=== PATIENT | male | born 2000 | race Hispanic/Latino ===

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

== ENCOUNTER 2020-05-28 00:47 | Emergency (ER) | payer BC, MEDICAID ==
[~2020-05-28] VITALS: Ht 157.5 cm; Wt 68.2 kg
[~2020-05-28 00:47] MED LIST: TEST200I14 IM
[2020-05-28] MEDS ORDERED: APAP325T4 PO (00:53)
[2020-05-28] MEDS ORDERED: TRUVTAB PO (00:53)
[2020-05-28 02:35] LABS: BASO # 0.1 10^3/uL (0.0-0.2); BASO % 0.7 % (0.0-1.0); EOS # 0.2 10^3/uL (0.0-0.5); EOS % 3.1 % (0.0-3.0); HEMATOCRIT 43.4 % (42.0-52.0); LYMPH # 2.2 10^3/uL (1.5-5.0); MEAN CORPUSCULAR HEMOGLOBIN 28.9 pg (27.0-33.0); MEAN CORPUSCULAR HGB CONC 32.3 g/dl (32.0-36.5); MEAN CORPUSCULAR VOLUME 89.7 fl (80.0-96.0); MONO # 0.8 10^3/uL (0.0-0.8); MONO % 11.5 % (0.0-5.0); NEUTROPHILS # 3.8 10^3/uL (1.5-8.5); NEUTROPHILS % 53.4 % (36.0-66.0); PLATELET COUNT, AUTOMATED 283 10^3/uL (150-450); RED BLOOD COUNT 4.84 10^6/uL (4.30-6.10); WHITE BLOOD COUNT 7.1 10^3/uL (4.0-10.0)
[2020-05-28 02:52] LABS: ERYTHROCYTE SEDIMENTATION RATE 2 mm/hr (0-15)
[2020-05-28 03:19] LABS: BLOOD UREA NITROGEN 9 MG/DL (7-18); CALCIUM LEVEL 9.5 MG/DL (8.5-10.1); CARBON DIOXIDE LEVEL 29 MEQ/L (21-32); CHLORIDE LEVEL 107 MEQ/L (98-107); CREATININE FOR GFR 1.01 MG/DL (0.70-1.30); GLUCOSE, FASTING 83 MG/DL (70-100); POTASSIUM SERUM 4.1 MEQ/L (3.5-5.1); SODIUM LEVEL 140 MEQ/L (136-145)
[2020-05-28 04:03] VITALS: BP 117/77
== END 2020-05-28 04:06 | disposition home or self-care (01) ==
LOC: M ED 00:47
DX: L76.34 Postprocedural seroma of skin and subcutaneous tissue following other procedure (principal)

== ENCOUNTER → 2020-08-15 | Outpatient (CLI) | payer MEDICAID ==
[~2020-08-15] MED LIST changes: +APAP325T4 PO; +TRUVTAB PO
== END ==
LOC: M LABSMTC 11:15
PROVIDERS: ATTEND Family Medicine
DX: Z20.828 Contact with and (suspected) exposure to other viral communicable diseases (principal)

== ENCOUNTER 2020-10-01 21:13 | Emergency (ER) | payer MEDICAID ==
[~2020-10-01] VITALS: Ht 160 cm; Wt 76.5 kg
--- OUTSIDE RECORDS SUMMARY | 2020-10-01 21:21 | CCD ---
Author Author [facility] Organization [facility] Address Unknown Phone Unavailable Care Team Providers Care Store Team Member Name Role Phone PETROFF, JIMMY PA Unavailable Unavailable PETROFF, JIMMY PA Unavailable Unavailable PETROFF, JIMMY PA Unavailable Unavailable PETROFF, JIMMY PA Unavailable Unavailable PETROFF, JIMMY PA Unavailable Unavailable PETROFF, JIMMY PA Unavailable Unavailable PETROFF, JIMMY PA Unavailable Unavailable PETROFF, JIMMY PA Unavailable Unavailable Re-disclosure Warning The records that you are about to access may contain information from federally-assisted alcohol or drug abuse programs. If such information is present, then the following federally mandated warning applies: This information has been disclosed to you from records protected by federal confidentiality rules (42 CFR part 2). The federal rules prohibit you from making any further disclosure of this information unless further disclosure is expressly permitted by the written consent of the person to whom it pertains or as otherwise permitted by 42 CFR part 2. A general authorization for the release of medical or other information is NOT sufficient for this purpose. The Federal rules restrict any use of the information to criminally investigate or prosecute any alcohol or drug abuse patient.The records that you are about to access may contain highly sensitive health information, the redisclosure of which is protected by Article 27-F of the [facility] Public Health law. If you continue you may have access to information: Regarding HIV / AIDS; Provided by facilities licensed or operated by the [facility] Office of Mental Health; or Provided by the [facility] Office for People With Developmental Disabilities. If such information is present, then the following [facility] mandated warning applies: This information has been disclosed to you from confidential records which are protected by state law. State law prohibits you from making any further disclosure of this information without the specific written consent of the person to whom it pertains, or as otherwise permitted by law. Any unauthorized further disclosure in violation of state law may result in a fine or correction sentence or both. A general authorization for the release of medical or other information is NOT sufficient authorization for further disc losure. Encounters Encounter Providers Location Date Indications Data Source(s ) Outpatient [facility] 07/02/2020 12:02:10 AM EDT [facility] Emergency Attender: JIMMY GALVEZ 2019 09:50:00 AM EDT - 05/26/2020 10:13:00 AM EDT [facility] Patient discharged. Outpatient [facility] 02/21/2020 08:01:13 PM EDT [facility] Outpatient [facility] 02/12/2020 12:02:58 AM EDT [facility] Insurance Providers Payer name Policy type / Coverage type Policy ID Covered republican ID Covered republican's relationship to medley Policy Medley Plan Information EMEDNY [id number] SP [id number] [employer] [facility] [place] [facility] 306/806 [id number] SP [id number] Self Pay P UNAVAILABLE S UNAVAILA BLE BCBS HMO BLUE [id number] S [id number] MEDICAID [id number] BCBS ANTHEM BC [id number] S JL [id number] BCBS O BLUE [id number] S [id number] [place] 306/806 [id number] SP [id number] [employer] [id number] SP [id number] MEDICAID [id number] SP [id number] Problems, Conditions, and Diagnoses Code Display Name Description Problem Type Effective Dates Data Source(s) Z90.13 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 ACQUIRED ABSENCE OF BILATERAL BREASTS AND NIPPLES Diagnosis 05/26/2020 09:50:00 AM EDT [facility] 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 Diagnosis 05/26/2020 09:50:00 AM [facility] l L76.82 Other postprocedural complications of sk in and subcutaneous tissue OTH POSTPROCEDURAL COMPLICATIONS OF SKIN, SUBCU Diagnosis 05/26/2020 09:50:00 AM [facility] R07.9 Chest pain, unspecified CHEST PAIN, UNSPECIFIED Diagno sis 05/26/2020 09:50:00 AM [facility] Results ID Date Data Source [id number] 08/15/2020 11:15:00 AM EST [facility] Name Value Range Interpretation Code Description Data Fabiana rce(s) Supporting Document(s) SARS coronavirus 2 RNA [facility] This lab was ordered by [facility] and reported by [facility]. ID Date Data Source [id number] 05/26/2020 12:40:00 PM [facility] Patient: SUZANNE ROBB atkevin Report - Physicians/Mid Levels [facility].VisitID: [id number] [place] [address] [phone], MRegistration Date/Time: 05/26/2020 09:41 Weight:67.5 kg (S). Height/Length:63 inches (S). BMI:26.4. Growth Chart Percentile: Weight:40.4%. Height/Length:1% FAMILY HISTORYPaternal grandmother: Cancer. Mother: Diabetes Mellitus, Heart Disease. INSTRUCTIONSYour Current Medications: Your current home medications have been reviewed. CONTINUE TAKING THE FOLLOWING MEDICATIONS:Truvada Oral : unknown dose daily, Last: 1 week ago. (Electronically signed by Jimmy Velez, PNathan 05/26/2020 12:12) Name Value Range Interpretation Code Description Data Fabiana rce(s) Supporting Document(s) ID Date Data Source [id number] 02/28/2020 05:27:00 PM EDT [facility] Name Value Range Interpretation Code Description Data Fabiana rce(s) Supporting Document(s) SARS-COV-2 RNA RESP QL TITI+PROBE [facility] This lab was ordered by [facility] and reported by [facility]. Procedure
[2020-10-01] MEDS ORDERED: WELLBUTRIN (21:23)
[2020-10-01] MEDS ORDERED: DOXY100C37 PO (23:25)
[2020-10-01] MEDS ORDERED: DOXYCYCLINE HYCLATE 100MG TABLET PO ONE (23:30)
--- OUTSIDE RECORDS SUMMARY | 2020-10-01 23:37 | CCD ---
Author Author [facility] Organization [facility] Address Unknown Phone Unavailable Care Team Providers [employer] Name Role Phone PETROFF, JIMMY PA Unavailable [...] is protected by Article 27-F of the [facility] Public Health law. If you continue you may have access to information: Regarding HIV / AIDS; Provided by facilities licensed or operated by the [facility] Office of Mental Health; or Provided by the [facility] Office for People With Developmental Disabilities. If such information is present, then the following [facility] mandated warning applies: This information has [...] law may result in a fine or snf sentence or both. A general authorization for the release of medical or other information is NOT sufficient authorization for further disc losure. Encounters Encounter Providers Location Date Indications Data Source(s ) Outpatient [facility] 07/02/2020 12:02:10 AM EDT [facility] Emergency Attender: JIMMY GALVEZ 2019 09:50:00 AM EDT - 05/26/2020 10:13:00 AM EDT [facility] Patient discharged. Outpatient [facility] 02/21/2020 08:01:13 PM EDT [facility] Outpatient [facility] 02/12/2020 12:02:58 AM EDT [facility] Insurance Providers Payer name Policy type / Coverage type Policy ID Covered alliance party ID Covered alliance party's relationship to medley Policy Med[employer] Plan Information EMEDNY [id number] SP [id number] [employer] [facility] [place] [facility] 306/806 [id number] SP [id number] Self Pay P UNAVAILABLE S UNAVAILA BLE BCBS O BLUE [id number] S [id number] [id number] MEDICAID [id number] S [id number] BCBS ANTHEM BC [id number] S JL [id number] BCBS O BLUE [id number] S JLJ [id number] [employer] [place] 306/806 [id number] SP [id number] [employer] [id number] SP [id number] MEDICAID [id number] SP [id number] Problems, Conditions, and Diagnoses Code Display Name Description Problem Type Effective Dates Data Source(s) Z90.13 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 ACQUIRED ABSENCE OF BILATERAL BREASTS AND NIPPLES Diagnosis 05/26/2020 09:50:00 AM EDT [facility] Z79.899 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 Diagnosis 05/26/2020 09:50:00 AM [facility] l L76.82 Other postprocedural complications of sk in and subcutaneous tissue OTH POSTPROCEDURAL COMPLICATIONS OF SKIN, SUBCU Diagnosis 05/26/2020 09:50:00 AM [facility] R07.9 Chest pain, unspecified CHEST PAIN, UNSPECIFIED Diagno sis 05/26/2020 09:50:00 AM [facility] Results ID Date Data Source [id number] 08/15/2020 11:15:00 AM EST [facility] Name Value Range Interpretation Code Description Data Fabiana rce(s) Supporting Document(s) SARS coronavirus 2 RNA [facility] This lab was ordered by [facility] and reported by [facility]. ID Date Data Source [id number] 05/26/2020 12:40:00 PM [facility] Patient: SUZANNE ROBB ation Report - Physicians/Mid Levels [facility].VisitID: [id number] [place] [address] [phone], MRegistration Date/Time: 05/26/2020 09:41 Weight:67.5 kg (S). [...] rce(s) Supporting Document(s) ID Date Data Source [id number] 02/28/2020 05:27:00 PM EDT [facility] Name Value Range Interpretation Code Description Data Fabiana rce(s) Supporting Document(s) SARS-COV-2 RNA RESP QL TITI+PROBE [facility] This lab [facility] and reported by [facility]. Procedure
[2020-10-01 23:39] VITALS: BP 130/77
== END 2020-10-01 23:40 | disposition home or self-care (01) ==
LOC: M ED 21:13
DX: L02.411 Cutaneous abscess of right axilla (principal); F17.200 Nicotine dependence, unspecified, uncomplicated; F64.0 Transsexualism; Z79.890 Hormone replacement therapy; Z90.13 Acquired absence of bilateral breasts and nipples

== ENCOUNTER 2020-12-10 22:00 | Emergency (ER) | payer BC, MEDICAID ==
[~2020-12-10] VITALS: Ht 160 cm; Wt 79.1 kg
[~2020-12-10 22:00] MED LIST changes: +DOXY100C37 PO; +WELLBUTRIN
[2020-12-11] MEDS ORDERED: ONDANSETRON 4MG/2ML VIAL IV ONE
[2020-12-11] MEDS ORDERED: GI COCKTAIL 50ML BTL(HYOSCYAMINE/MAALOX/LIDOCAINE VISCOUS)(1:3:1) PO ONE
[2020-12-11] MEDS ORDERED: SUCRALFATE 1 GM TAB PO ONE
[2020-12-11] MEDS ORDERED: NS 1,000 ML IV ONE
[2020-12-11] MEDS ORDERED: PANTOPRAZOLE 40MG VIAL (C9113 PER 1) IV ONE
[2020-12-11 00:40] LABS: BASO % 0.1 % (0.0-1.0); EOS # 0.1 10^3/uL (0.0-0.5); EOS % 0.5 % (0.0-3.0); HEMATOCRIT 47.9 % (42.0-52.0); LYMPH # 0.9 10^3/uL (1.5-5.0); LYMPH % 5.8 % (24.0-44.0); MEAN CORPUSCULAR HEMOGLOBIN 29.6 pg (27.0-33.0); MEAN CORPUSCULAR HGB CONC 33.4 g/dl (32.0-36.5); MEAN CORPUSCULAR VOLUME 88.5 fl (80.0-96.0); MONO # 1.2 10^3/uL (0.0-0.8); MONO % 7.5 % (2.0-8.0); NEUTROPHILS # 13.2 10^3/uL (1.5-8.5); NEUTROPHILS % 85.7 % (36.0-66.0); PLATELET COUNT, AUTOMATED 253 10^3/uL (150-450); RED BLOOD COUNT 5.41 10^6/uL (4.30-6.10); WHITE BLOOD COUNT 15.4 10^3/uL (4.0-10.0)
[2020-12-11 01:13] LABS: ALBUMIN 4.3 GM/DL (3.2-5.2); BILIRUBIN,DIRECT 0.1 MG/DL (0.0-0.2); BILIRUBIN,TOTAL 0.4 MG/DL (0.2-1.0); TOTAL PROTEIN 8.4 GM/DL (6.4-8.2)
--- NOTE | 2020-12-11 01:41 | REPVR ---
PROCEDURE INFORMATION: Exam: XR Complete Acute Abdomen Series Exam date and time: 12/10/2020 1:27 AM Age: 20 years old Clinical indication: Abdominal pain; Acute; Additional info: Epigastric pain, nv, R/O free air, obstruction TECHNIQUE: Imaging protocol: XR complete acute abdomen series, including 2 or more views of the abdomen and a single view chest. COMPARISON: No relevant prior studies available. FINDINGS: Lungs: Normal. No consolidation. Pleural spaces: Normal. No pleural effusions. No pneumothorax. Heart/Mediastinum: Normal. No cardiomegaly. Gastrointestinal tract: Normal. No bowel dilation. Intraperitoneal space: Normal. No free air. Bones/joints: Normal. No acute fracture. Soft tissues: Normal. IMPRESSION: No acute findings. Electronically signed by: Frankie Gonzalez On 12/11/2020 01:41:11 AM
--- NOTE | 2020-12-11 01:42 | REPVR ---
PROCEDURE INFORMATION: Exam: US Abdomen, Limited; Right Upper Quadrant Exam date and time: 12/11/2020 1:06 AM Age: 20 years old Clinical indication: Abdominal pain; Acute; Additional info: Epigastric pain, nv TECHNIQUE: Imaging protocol: US abdomen. Real time ultrasound with image documentation. Limited exam focused on the right upper quadrant. COMPARISON: No relevant prior studies available. FINDINGS: Liver: Normal. No masses. Gallbladder: Normal. No gallstones. There is no gallbladder wall thickening. Common bile duct: Normal. No stones. No dilation. Pancreas: Visualized pancreas is unremarkable. Right kidney: Normal. No mass. No hydronephrosis. IMPRESSION: No acute findings. Electronically signed by: Frankie Gonzalez On 12/11/2020 01:42:07 AM
[2020-12-11] MEDS ORDERED: OMEP20TA9 PO (02:11)
[2020-12-11 02:39] VITALS: BP 138/79
== END 2020-12-11 02:44 | disposition home or self-care (01) ==
LOC: M ED 22:00
DX: R10.13 Epigastric pain (principal); R11.2 Nausea with vomiting, unspecified; D72.829 Elevated white blood cell count, unspecified; F17.200 Nicotine dependence, unspecified, uncomplicated; Z79.899 Other long term (current) drug therapy
CPT/HCPCS: 74021; 76705; 80047; 80076; 83690; 84702; 85025; 96361; 96374; 96375; 99284; C9113; J2405